=== PATIENT | male | born 1940 | race Two or more races ===

== ENCOUNTER → 2016-11-21 | Day surgery (SDC) | payer MEDICARE, BC ==
[~2016-11-21] VITALS: Ht 165.1 cm; Wt 83.9 kg
[2016-11-21] VITALS (7 sets, daily range): BP systolic 152–175; BP diastolic 52–81
[~2016-11-21] MED LIST: BLOOD PRESSURE PILL; LR 1000ml 1,000 ML IVLG SCH; LR 1000ml ONE; PROSTATE; Propofol 10mg/ml 20ml IV ONE; THYROID PILL
--- NOTE | 2016-11-21 09:34 | Pre-Procedure Note/Attestation ---
Pre-Procedure Note/Attestation Complete Prior to Procedure Planned Procedure: left Procedure Narrative: The endoscopic examination of the upper and the lower GI tract. Indications for Procedure Pre-Operative Diagnosis: R/O Peptic ulcer/CA/polyps. Attestation I attest that I discussed the nature of the procedure; its benefits; risks and complications; and alternatives (and the risks and benefits of such alternatives ), prior to the procedure, with the patient (or the patient's legal paper sales representative). I attest that, if there was a reasonable possibility of needing a blood transfusion, the patient (or the patient's legal paper sales representative) was given the [place] [facility] standardized written summary, pursuant to the Laci Michael Blood Safety Act ([place] Health and Safety Code # 1645, as amended). I attest that I re-evaluated the patient just prior to the surgery and that there has been no change in the patient's H&P, except as documented below: CHUYITASAID Nov 21, 2016 09:34
--- NOTE | 2016-11-21 09:34 | Short Stay Surgery H&P ---
History of Present Illness History of Present Illness Chief Complaint abdominl pains/screening colon HPI Kiran Payne is a 76 year old male who was admitted on for Abdominal Pain Patient History Allergies: Coded Allergies: No Known Allergies (Unverified , 11/21/16) PAST MEDICAL HISTORY: (1) Hypertension (2) Hyperlipidemia (3) Hypothyroidism Past Surgeries: Social History: Medication History Miscellaneous Medications [Blood Pressure Pill], (Reported) [Prostate], (Reported) [Thyroid Pill], (Reported) Review of Systems Cardiovascular: Reports: no symptoms Respiratory: Reports: no symptoms Skeletal: Reports: no symptoms Gastrointestinal: Reports: gastro esophageal reflux disease Genitourinary: Reports: no symptoms Neurologic: Reports: no symptoms Endocrine: Reports: no symptoms Hematologic: Reports: no symptoms Physical Exam Vital Signs Last Vital Signs Date Time Temp Pulse Resp B/P Pulse Ox O2 Delivery O2 Flow Rate FiO2 11/21/16 09:22 97.9 54 20 175/75 97 Room Air Skin: normal HENT: normal Heart: normal Lungs: normal Abdomen: normal Extremities: normal Genitourinary: normal Plan Plan of Care Upper and lower GI endoscopies. Preop Interventions None. Summary of Findings See the reports. Final Diagnosis: Attestation Are the patient's medical conditions optimized for surgery? Attestation Response: yes ROSAURA BOOGIE Nov 21, 2016 09:33
--- NOTE | 2016-11-21 09:45 | Anethesia Preoperative Eval ---
Anesthesia Pre-op PMH/ROS General Date of Evaluation: Nov 21, 2016 Time of Evaluation: 09:43 Anesthesiologist: Caitlin ASA Score: ASA 2 Mallampati Score Class I : Soft palate, uvula, fauces, pillars visible Class II: Soft palate, uvula, fauces visible Class III: Soft palate, base of uvula visible Class IV: Only hard plate visible Mallampati Classification: Class II Surgeon: Jina Diagnosis: GERD/Screning Surgical Procedure: EGD/Colonoscopy Anesthesia History: none Family History: no anesthesia problems Allergies: Coded Allergies: No Known Allergies (Unverified , 11/21/16) Medications: see eMAR Past Medical History Cardiovascular: Reports: HTN Pulmonary: Denies: COPD, LEANA, asthma, other Gastrointestinal/Genitourinary: Denies: CRI, ESRD, GERD, other Neurologic/Psychiatric: Denies: CVA, TIA, dementia, depression/anxiety, other Endocrine: Reports: hypothyroidism HEENT: Denies: [place] (L), [place] (R), cataract (L), cataract (R), glaucoma, other Hematology/Immune: Denies: DVT, anemia, bleeding disorder, other Musculoskeletal/Integumentary: Denies: DDD, DJD, OA, RA, edema, other PMH Narrative: HTN, Hypothyroidism PSxH Narrative: colonoscopy Anesthesia Pre-op Phys. Exam Physician Exam Last Vital Signs Date Time Temp Pulse Resp B/P Pulse Ox O2 Delivery O2 Flow Rate FiO2 11/21/16 09:22 97.9 54 20 175/75 97 Room Air Constitutional: NAD Neurologic: CN 2-12 intact Cardiovascular: RRR Respiratory: CTA Gastrointestinal: S/NT/ND Airway Exam Mallampati Score: Class II MO: full ROM: full Teeth: intact Dentures: no lower, no upper JOAQUIM MARINELLI D.O. Nov 21, 2016 09:45
--- NOTE | 2016-11-21 10:11 | Immediate Post-Op Evaluation ---
Immediate Post-Op Evalulation Immediate Post-Op Evalulation Procedure: EGD with biopsy/colonoscopy Date of Evaluation: Nov 21, 2016 Time of Evaluation: 10:10 IV Fluids: 200ml Blood Products: none Estimated Blood Loss: none Urinary Output: due to void Blood Pressure Systolic: 139 Blood Pressure Diastolic: 79 Pulse Rate: 50 Respiratory Rate: 16 O2 Sat by Pulse Oximetry: 99 Temperature (Fahrenheit): 97.8 Pain Score (1-10): 0 Nausea: No Vomiting: No Complications stable Patient Status: awake, reacts Hydration Status: adequate Drug: n/a JOAQUIM MARINELLI D.O. Nov 21, 2016 10:11
--- NOTE | 2016-11-21 10:12 | Endoscopy Procedure Note ---
Endoscopy Procedure Note Indication for Procedure: Abdominal pains and GERDs/screening colon Procedures Performed: EGD - 2mm acute ulcer at the prepyloric are (11 oclock) benign looking bilopsied. edema of pyloric channel, otherwise normal upper GI endoscopy., colonoscopy - Poor colon prep. Minimal internal hemorrhoids; otherwise normal total colonoscopy. Specimen: yes Pt Tolerated Procedure Well: Yes Estimated Blood Loss: none Anesthesiologist: Dr. Perez Anesthesia: moderate sedation Medication Given: see anesthesia record Implant(s) used?: No 50 yrs or older w/o bx or poly: Yes 10yrs. F/U not recommended: No If not recommended, why?: 10 yrs. F/U needed: No 18 years or older w/prev. colo: No <3yrs. since last colonoscopy: No Med reason:<3 yrs.: System Reason:<3 yrs.: Last colonoscopy >= to 3yrs: Yes ROSAURA BOOGIE Nov 21, 2016 10:12
--- NOTE | 2016-11-21 10:13 | Discharge Instructions ---
Discharge Instructions Discharge Instructions Follow up with: See the docotor in the office after two weeks. For Congestive Heart Failure Reminder Report to your physician any weight gain of 5 pounds or more in one week. ROSAURA BOOGIE Nov 21, 2016 10:13
--- NOTE | 2016-11-21 10:21 | 48 Hour Post Anesthesia Eval ---
Post Anesthesia Evaluation Procedure: EGD with biopsy/colonoscopy Date of Evaluation: Nov 21, 2016 Time of Evaluation: 10:21 Blood Pressure Systolic: 155 0: 62 Pulse Rate: 53 Respiratory Rate: 16 Temperature (Fahrenheit): 97.6 O2 Sat by Pulse Oximetry: 99 Airway: patent Nausea: No Vomiting: No Pain Intensity: 0 Hydration Status: adequate Cardiopulmonary Status: stable Mental Status/LOC: patient returned to baseline Follow-up Care/Observations: as per GI Post-Anesthesia Complications: none Follow-up care needed: N/A JOAQUIM MARINELLI D.O. Nov 21, 2016 10:21
--- NOTE | 2016-11-21 20:58 | Operative Note - Dictated ---
REFERRING PHYSICIAN: Dr. Rodriguez. PROCEDURE: Esophagogastroduodenoscopy with biopsy. SURGEON: Jarad Muro M.D. PREOPERATIVE DIAGNOSES: 1. Abdominal pain. 2. History of gastroesophageal reflux. POSTOPERATIVE DIAGNOSES: Evidence of acute 2 mm peptic ulcer located in the pre-pyloric area, which was biopsied with edema of pyloric channel and a biopsy was also obtained from gastric body per random. MEDICATION USED: Per Dr. Perez. INSTRUMENT: GIF Olympus upper gastrointestinal video endoscope. DESCRIPTION OF PROCEDURE: The patient after arriving endoscopy unit, was told about risks and benefits of the procedure, which he accepted and signed the informed consent. At this time, he was put on the left lateral decubitus position. After adequate IV sedation, the scope was gently passed through the cricopharyngeal area, was lodged into the upper esophagus, and gradually advanced towards gastroesophageal junction. There was no any abnormality found in the esophagus and then the scope reached to the gastroesophageal junction, which also revealed normal finding without any Olivarez's or major hiatal hernia. Subsequently, the scope was negotiated in to the stomach. Gastric cavity was distended. Gastric fold came into view, which revealed basically normal findings and upon the passage of the scope towards the antrum there was evidence of an acute 2 mm ulceration, which was covered with some exudative at the base, which looked benign in the prepyloric area at 11 o'clock. This was biopsied and the specimen was sent to pathology lab. It looked benign, however, as I mentioned. There was also no abnormality in the rest of the stomach including the areas of the fundus and the body and the antrum. As such, one random biopsy from gastric body was obtained. Finally, the scope was passed through the pyloric channel, which was the benefits that I mentioned and the first and second portion of duodenum were found to be completely normal. At this time, the scope was pulled out. The retroflexion maneuver, which was applied in the area of the fundus did not reveal any other abnormalities. At this point, the procedure was terminated. The patient tolerated the procedure well. Jarad Muro M.D. DR: PABLO JOB#: [id number] CC:
--- NOTE | 2016-11-21 23:28 | Operative Note - Dictated ---
DATE OF PROCEDURE: 11/21/2016 SURGEON: Jarad Muro M.D. REFERRING PHYSICIAN: Dr. Carlton, name is not on the staff. PROCEDURE PERFORMED: Total colonoscopy. PREOPERATIVE DIAGNOSES: Abdominal pain and screening colonoscopy. POSTOPERATIVE DIAGNOSES: 1. Poor colonic preparation. 2. Complete normal total colonoscopy with the evidence of minimal internal hemorrhoids of no great significance. MEDICATION USED: Per Dr. Tucker, anesthesiologist. INSTRUMENT: GIF Olympus videocolonoscope. DESCRIPTION OF PROCEDURE: The patient after arriving endoscopy unit, was told about risks and benefits of the procedure, which he accepted and signed the informed consent. At this time, he was put in left lateral decubitus position. After adequate IV sedation, the scope was gently passed through the anal area, and retroflexion maneuver which was applied here did reveal evidence of very minimal internal hemorrhoids and not friable and nonsignificant. The rest of the rectum looked normal. The retroflexion maneuver of the scope was applied as well. Finally, scope was straightened and passed into the left colon. Gradually reached to the splenic flexure and transverse colon. The colon cleanup was not adequate and there was liquidy stool along the colon, which made the examination difficult and as such, presence of a small diminutive hyperplastic polyps could not be ruled out. Multiple irrigation however was done and further examination of the colon including the passage of the scope through the transverse colon, hepatic flexure. Transverse colon all the way to the base of the cecum with multiple irrigations did not reveal any abnormalities, such as tumors, polyps, inflammatory process or stricture etc. At this point, within 8 minutes the scope was gradually pulled out and reexamination of the colon did not add any other problem. The patient finally tolerated the procedure well and left the endoscopy room in good condition. Jarad Muro M.D. DR: URBANO JOB#: [id number] CC:
== END | disposition home or self-care (01) ==
LOC: GAS 08:02
DX: Z12.11 Encounter for screening for malignant neoplasm of colon (principal); K64.8 Other hemorrhoids; K29.50 Unspecified chronic gastritis without bleeding; K31.9 Disease of stomach and duodenum, unspecified; K25.9 Gastric ulcer, unspecified as acute or chronic, without hemorrhage or perforation; K21.9 Gastro-esophageal reflux disease without esophagitis; I10 Essential (primary) hypertension; E78.5 Hyperlipidemia, unspecified; E03.9 Hypothyroidism, unspecified
CPT/HCPCS: 43239; G0121; J2704; J7120; 94003; 94150